=== PATIENT | female | born 1945 | race Caucasian/White ===

== ENCOUNTER 2017-03-02 00:20 | Outpatient (CLI) | payer MEDICARE, BC | END 2017-03-02 23:59 | disposition home or self-care (01) | LOC: DIABETIC 00:20 | PROVIDERS: ATTEND Family Medicine | DX: E11.9 Type 2 diabetes mellitus without complications (principal) | CPT/HCPCS: G0108 ==

== ENCOUNTER 2017-06-14 04:59 | Outpatient (CLI) | payer MEDICARE, BC | END 2017-06-14 23:59 | disposition home or self-care (01) | LOC: DIABETIC 04:59 | PROVIDERS: ATTEND Family Medicine | DX: E11.9 Type 2 diabetes mellitus without complications (principal) | CPT/HCPCS: G0108 ==

== ENCOUNTER 2017-09-20 02:07 | Outpatient (CLI) | payer MEDICARE, BC | END 2017-09-20 23:59 | disposition home or self-care (01) | LOC: DIABETIC 02:07 | PROVIDERS: ATTEND Family Medicine | DX: E11.9 Type 2 diabetes mellitus without complications (principal); Z79.899 Other long term (current) drug therapy | CPT/HCPCS: G0108 ==

== ENCOUNTER 2018-07-25 04:40 | Outpatient (CLI) | payer MEDICARE, BC | END 2018-07-25 23:59 | disposition home or self-care (01) | LOC: DIABETIC 04:40 | PROVIDERS: ATTEND Family Medicine | DX: E11.69 Type 2 diabetes mellitus with other specified complication (principal); Z79.84 Long term (current) use of oral hypoglycemic drugs; Z79.899 Other long term (current) drug therapy | CPT/HCPCS: G0108 ==